=== PATIENT | female | born 1960 | race Caucasian/White ===

== ENCOUNTER 2016-09-22 07:08 | Emergency (ER) | payer OTHER ==
[~2016-09-22] VITALS: Ht 162.6 cm; Wt 106.8 kg
[2016-09-22 07:11] VITALS: BP 209/114; PULSE 81; RESP 12; O2SAT 100
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
[2016-09-22] MEDS ORDERED: oxyCODONE-Acetamin 5-325 mg Tablet PO ONE (08:25)
[2016-09-22] MEDS ORDERED: OXYC1TAB24 PO (08:25)
[2016-09-22 09:00] VITALS: BP 187/98; PULSE 71; RESP 16; O2SAT 98
== END 2016-09-22 08:46 | disposition home or self-care (01) ==
LOC: SED 07:08
DX: S62.115A Nondisplaced fracture of triquetrum [cuneiform] bone, left wrist, initial encounter for closed fracture (principal); V43.52XA Car driver injured in collision with other type car in traffic accident, initial encounter; Y93.89 Activity, other specified; Y92.410 Unspecified street and highway as the place of occurrence of the external cause; Y99.8 Other external cause status; J45.909 Unspecified asthma, uncomplicated; I10 Essential (primary) hypertension; K21.9 Gastro-esophageal reflux disease without esophagitis; E78.5 Hyperlipidemia, unspecified; Z88.8 Allergy status to other drugs, medicaments and biological substances

== ENCOUNTER 2016-10-07 17:16 | Emergency (ER) | payer OTHER ==
[~2016-10-07] VITALS: Ht 162.6 cm; Wt 109.1 kg
[~2016-10-07 17:16] MED LIST: OXYC1TAB24 PO
[2016-10-07 17:31] VITALS: BP 167/92; PULSE 84; RESP 16; O2SAT 97
--- NOTE | 2016-10-07 20:26 | ED.REPORT ---
HPI-Extremity Problem Upper Date of Service Oct 07, 2016 ED Provider: Emanuel Castellanos PA-C Olimpia is a 56-year-old female with a history of hypertension who presents with chief complaint of swelling under her cast. She has a cast on her left arm for a triquetrum fracture first treated approximately 2 weeks ago. Approximately 2 days ago she felt a sensation of swelling under the cast and complains of tingling worse in her third, fourth and fifth digits. She is being treated by Dr. Lobo. Nursing Notes Stated Complaint: SWELLING IN LEFT ARM, UNDER CAST Chief Complaint: Extremity Trauma Nursing Notes Reviewed: Yes Allergies: Coded Allergies: atenolol (Verified Allergy, Intermediate, diarrhea, 10/07/16) lisinopril (Verified Allergy, Intermediate, eyes swelled shut, 10/07/16) Scheduled PRN oxyCODONE-Acetaminophen 5-325 mg (oxyCODONE-Acetaminophen 5-325 mg) 1 Each Tablet 1 TAB PO Q4H PRN PRN For Pain General Time Seen by MD: 20:13 Chief Complaint Hand Injury left Past Medical History Past Medical History Asthma HTN GERD Hyperlipidemia Review of Systems Review of Systems Note: Negative unless stated otherwise in history of present illness Physical Exam General: Well appearing, well developed, well nourished, no acute distress. Left hand: Mild ecchymosis on the volar aspect of the hand. No redness, swelling, warmth. Sensation and circulation intact distally. Brisk capillary refill. Head: Atraumatic, normocephalic. Eyes: No scleral icterus or injection. No discharge. Vision grossly intact. ENT: Voice clear, hearing grossly intact. Respiratory: No respiratory distress, no increased work of breathing. Speaks in complete sentences. Skin: Warm and dry. Neurological: Grossly nonfocal. Psychological: alert and oriented. Speech appropriate, linear and logical. Behavior appropriate. Initial Vital Signs Vital Signs (First) Date Time Temp Pulse Resp B/P Pulse Ox O2 Delivery O2 Flow Rate FiO2 10/07/16 17:31 36.2 84 16 167/92 97 Room Air Initial VS: Vital signs abnormal (elevated blood pressure) Re-Eval/Medical Decision Med Decision/Clinical Course 86-year-old female presents with complaint of tingling fingers and sensation of swelling inside her cast. Fingers remained warm with brisk capillary refill. She is treated by Dr. Lobo for a triquetrum fracture. Cast is removed revealing mild ecchymosis but no redness, swelling, heat. I have low concern for compartment syndrome, infection. Reapplied volar splint, retaining circulation, sensation and motion. Patient states that her sensation of tingling is resolved. Provided take-home pack of Percocet for pain medication with precautions. Advised follow-up with Dr. Lobo as soon as possible. Provided emergency return precautions. Patient understands and agrees with plan. I discussed this case with Dr. Holden. Discharge & Departure Impression: Primary Impression: Fracture of triquetrum of left wrist Encounter type: subsequent encounter Fracture type: closed Additional Impression: Elevated blood pressure reading Disposition: Home Discharge Condition All VS Reviewed: Yes Condition: Stable Patient Instructions: Splint Care (ED) Additional Instructions: Evaluation for left hand swelling in the emergency department. History and physical are reassuring that this is unlikely to be due to a dangerous condition such as an infection. We have loosened your cast to improve circulation. Please follow-up with to be recasted. Keep the affected limb elevated this much as possible. Pain is best managed with 800 mg of ibuprofen every 6 hours. I will send you home with a small amount of Percocet that you can add to this for more severe pain. Please not operate a vehicle or drink alcohol in 4 hours of taking Percocet. Return to emergency from for new or worsening symptoms including increasing pain , or cold/numb hand. I also note that your blood pressure was elevated during your visit to the emergency department. Please discuss this with your primary care provider. Referrals: Neymar Lobo MD EDSupervising Provider for APC: Leo Holden MD copies to: Christian Farah MD; Neymar Lobo MD, Seth PA-C Oct 07, 2016 20:26
[2016-10-07] MEDS ORDERED: HYDROcodone-APAP 5-325 mg Tablet PO ONE (21:05)
[2016-10-07] MEDS ORDERED: _oxyCODONE/APAP 5-325 mg Tablet PO PRN (22:45)
[2016-10-07 23:00] VITALS: BP 164/93; PULSE 78; RESP 16; O2SAT 98
== END 2016-10-07 23:01 | disposition home or self-care (01) ==
LOC: SED 17:16
DX: S62.112D Displaced fracture of triquetrum [cuneiform] bone, left wrist, subsequent encounter for fracture with routine healing (principal); I10 Essential (primary) hypertension; V89.9XXD Person injured in unspecified vehicle accident, subsequent encounter; Y93.89 Activity, other specified; Y99.8 Other external cause status; Y92.410 Unspecified street and highway as the place of occurrence of the external cause; J45.909 Unspecified asthma, uncomplicated; K21.9 Gastro-esophageal reflux disease without esophagitis; E78.5 Hyperlipidemia, unspecified; Z88.8 Allergy status to other drugs, medicaments and biological substances
CPT/HCPCS: 29125; 96372; 99284; J1885